=== PATIENT | male | born 1985 ===

== ENCOUNTER 2025-06-23 16:57 | Emergency (ER) | payer BC, SELFPAY ==
--- NOTE | ~2025-06-23 | XR_ITS ---
HISTORY: pain medial, mid to posterior. no known injury COMPARISON: None TECHNIQUE: 3 views of the right foot were performed FINDINGS: Minimally displaced fracture of the medial navicular bone is identified, with partial dislocation. An additional fracture deformity is identified within the distal tip of the medial cuneiform. No additional acute or subacute fractures are appreciated. Ossification of the insertion of the Achilles tendon is identified. The base of the fifth metatarsal is intact. No calcaneal spur is noted. No significant soft tissue swelling is present. IMPRESSION: Acute fractures of the medial navicular with partial dislocation as well as mccarthy avulsion fracture of the medial cuneiform Reviewed, dictated and finalized at location A. IMPRESSION: Acute fractures of the medial navicular with partial dislocation a s well as mccarthy avulsion fracture of the medial cuneiform
--- NOTE | 2025-06-23 17:00 | ED_ITS ---
HPI - Extremity Injury (Lower) General Chief Complaint: Extremity Injury, Lower Stated Complaint: ankle pain Time Seen by Provider: 06/23/25 17:19 Source: patient and RN notes reviewed Mode of arrival: ambulatory Limitations: no limitations History of Present Illness HPI Narrative: 39-year-old male presents to the [facility] with right medial mid to posterior foot pain. No tenderness to the Achilles. No tenderness to the medial malleolus. Patient reports that on Sunday he had a personal development coach, had no pain at that time, started Sunday with some discomfort and mild swelling. Sunday states that they flew, walked through the airport, had additional pain and swelling. Comes in today with continued pain. Has it wrapped with Coban. Has taken Advil Denies any direct injury Onset (ago): day(s) (3) Treatments prior to arrival: NSAIDS Related Data Home Medications ?Medication ?Instructions ?Recorded ?Confirmed ?Last Taken ?Type clotrimazole-betamethasone 1 applic topical 06/23/25 Unknown History %-0.05 % topical cream esomeprazole magnesium 40 mg mg 06/23/25 Unknown History capsule,delayed release tirzepatide 10 mg/0.5 mL mg subcut 06/23/25 Unknown History subcutaneous pen injector (Mounjaro) tirzepatide 15 mg/0.5 mL mg subcut 06/23/25 Unknown History subcutaneous pen injector (Mounjaro) Allergies Allergy/AdvReac Type Severity Reaction Status Date / Time No Known Allergies Allergy Verified 06/23/25 17:28 Review of Systems 2 Review of Systems: All systems reviewed & are unremarkable except as noted in HPI and below Constitutional: Constitutional: Reports no additional constitutional complaints Musculoskeletal: Musculoskeletal: Reports as per HPI, Denies deformity, Reports arthralgias, Reports joint swelling and Denies numbness Integumentary/Breasts: Skin/Breast: Reports system reviewed and no additional complaints, except as docu [facility] Past Medical History Medical History Acid reflux Type 2 diabetes mellitus Comments At the time of my signature, I reviewed and agree with the nursing past medical, surgical, social, and family history. There is no relevant family history pertinent to the patient complaint. Exam 2 Const: General: cooperative, healthy appearing, comfortable, no acute distress, well developed, alert and well nourished Nutritional Appearance: w ell nourished and obese Orientation/consciousness: patient oriented x3 L imitations: no limitations HENMT: Head: normal to inspection Eyes: General: appearance normal, both eyes and all related structures A lignment and Position: alignment normal Neck: Neck: normal visual inspection, full ROM, no lymphadenopathy and no meningeal signs Chest: Chest palpation & inspection: normal inspection of the chest Resp: Effort & Inspection: normal respiratory effort and able to speak in complete sentences Cardio: Rate: regular rate Skin: General skin exam: normal color and no rashes or lesions noted Neuro: General: patient oriented x3, gait normal, moves all extremities and no meningeal signs Cognition (Neuro): normal cognition Speech: normal speech Gait exam (Neuro): Normal gait present Extrem: General: normal to inspection, full ROM, capillary refill normal and normal gait Right lower extremity: foot Details: normal capillary refill, tenderness Location: of the medial foot Location: in the mid-section and proximally, toes with normal ROM and vascular exam Details: dorsalis pedis pulse present and normal capillary refill; no abrasion, no laceration and no ecchymosis Ankle/foot/toe images: 1. Tenderness to palpation. No swelling, no ecchymosis. No erythema Psych: Appearance: grossly normal and well kempt Mental Status: mental status grossly normal Speech and movement: Normal speech and movement present and Clear speech present Affect: normal affect Attitude: cooperative Course Course Level of Care: Express Care Visit Vital Signs Vital signs: Vital Signs Temperature 98.3 F 06/23/25 17:20 Pulse Rate 89 06/23/25 17:20 Respiratory Rate 16 06/23/25 17:20 Blood Pressure 123/86 06/23/25 17:20 Pulse Oximetry 100 06/23/25 17:20 Temperature 98.3 F 06/23/25 17:20 Pulse Rate 89 06/23/25 17:20 Respiratory Rate 16 06/23/25 17:20 Blood Pressure 123/86 06/23/25 17:20 Pulse Oximetry 100 06/23/25 17:20 Reviewed MDM - Extremity Injury (Lower) MDM Narrative Medical decision making narrative: Due to partial dislocation of the medial navicular, advice patient of needing a posterior splint, patient declined. Will sign out against medical advice in regards to wearing the splint. Will follow up with primary, ortho Nonweightbearing No known injury patient presents with 3 day history of foot pain. Significant tenderness to the medial mid to posterior foot. X-ray shows navicular fracture, chip fracture of the, cuneiform Patient advised to be nonweightbearing, splint applied and crutches given. Given a copy of the x-rays as well as a disc. Discharge instructions reviewed with patient, as well as provided in writing per nursing staff. The instructions also include specific and strict return/GO TO THE ER as well as f/u information. All questions have been answered, and the patient deny any further questions with discharge and discharge plan. Some parts of this dictation were generated by voice recognition software and may contain typographical and/or grammatical inaccuracies. Differential Diagnosis Differential diagnosis: Likely ankle sprain and strain, ankle fracture and other (Foot fracture, foot sprain, contusion) Imaging Data Radiologist's impression: HISTORY: pain medial, mid to posterior. no known injury COMPARISON: None TECHNIQUE: 3 views of the right foot were performed FINDINGS: Minimally displaced fracture of the medial navicular bone is identified, with partial dislocation. An additional fracture deformity is identified within the distal tip of the medial cuneiform. No additional acute or subacute fractures are appreciated. Ossification of the insertion of the Achilles tendon is identified. The base of the fifth metatarsal is intact. No calcaneal spur is noted. No significant soft tissue swelling is present. IMPRESSION: Acute fractures of the medial navicular with partial dislocation as well as mccarthy avulsion fracture of the medial cuneiform Critical Care Time Critical Care Time Critical Care Time: No Discharge Plan Discharge Clinical Impression: Closed navicular fracture of right foot, Closed fracture of cuneiform bone of right foot Patient Disposition: Home Condition: Stable Instructions: Crutch Instructions (ED), Foot Fracture in Adults (ED), Splint Care (ED) Additional Instructions: Rest, ice and elevate every 2-3 hours for 15-20 minutes while awake. Use crutches at all times, keep splint on until cleared by orthopedist Call your orthopedic or platform operations director tomorrow and make a follow-up appointment for early next week Take Tylenol alternating with ibuprofen as needed for pain Patient Language: Hungarian Prescriptions: No Action esomeprazole magnesium 40 mg capsule,delayed release(DR/EC) Mounjaro 10 mg/0.5 mL pen injector SUBCUT Mounjaro 15 mg/0.5 mL pen injector SUBCUT clotrimazole-betamethasone 1-0.05 % cream TOPICAL Follow-up/Referrals: UNKNOWN,DOCTOR [Non-Staff] - Time of Disposition: 18:22
[2025-06-23 17:20] VITALS: BP 123/86; PULSE 89; RESP 16; TEMP 36.8; O2SAT 100
== END 2025-06-23 18:26 | disposition home or self-care (01) ==
PROVIDERS: Emergency Provider Nurse Practitioner
DX: S92.251A Displaced fracture of navicular [scaphoid] of right foot, initial encounter for closed fracture (principal); S92.241A Displaced fracture of medial cuneiform of right foot, initial encounter for closed fracture; E11.9 Type 2 diabetes mellitus without complications; Z79.899 Other long term (current) drug therapy; X58.XXXA Exposure to other specified factors, initial encounter
CPT/HCPCS: 29515; 73630; 99204; G0463